=== PATIENT | male | born 1990 | race African-American/Black ===

== ENCOUNTER 2018-01-29 18:18 | Emergency (ER) | payer MEDICAID ==
[~2018-01-29] VITALS: Ht 170.2 cm; Wt 86.0 kg
[2018-01-29] MEDS ORDERED: ACETAMINOPHEN 325MG TABLET ONE (18:31)
[2018-01-29] MEDS ORDERED: KETOROLAC 60MG/2ML VIAL IM ONE (20:30)
[2018-01-29] MEDS ORDERED: ACETAMINOPHEN WITH CODEINE 300/30MG TABLET PO ONE (20:30)
[2018-01-29] MEDS ORDERED: PREDNISONE 20MG TABLET PO ONE (20:30)
[2018-01-29] MEDS ORDERED: AMOXICILLIN 500 MG CAPSULE PO ONE (21:15)
[2018-01-29 22:00] VITALS: BP 128/80
== END 2018-01-29 22:09 | disposition home or self-care (01) ==
LOC: ER 20:24
DX: J02.0 Streptococcal pharyngitis (principal)
CPT/HCPCS: 87430; 96372; 99284; J1885; J7512; Z7610